=== PATIENT | female | born 2000 | race African-American/Black ===

== ENCOUNTER 2021-08-29 17:16 | Emergency (ER) | payer MEDICAID ==
[~2021-08-29] VITALS: Ht 167.6 cm; Wt 55.0 kg
[2021-08-29 18:29] VITALS: BP 106/66
== END 2021-08-29 21:49 | disposition home or self-care (01) ==
LOC: ER 17:16
DX: S70.11XA Contusion of right thigh, initial encounter (principal); W18.30XA Fall on same level, unspecified, initial encounter; Y93.89 Activity, other specified; Y92.89 Other specified places as the place of occurrence of the external cause; Y99.8 Other external cause status
CPT/HCPCS: 73552; 73590; 81025; 99284